=== PATIENT | female | born 1985 | race Two or more races ===

== ENCOUNTER 2021-02-10 10:13 | Emergency (ER) | payer OTHER, SELFPAY ==
--- NOTE | ~2021-02-10 | CT_ITS ---
EXAMINATION: CT ABDOMEN AND PELVIS WITHOUT CONTRAST CLINICAL INFORMATION: Nonreducible abdominal wall hernia. COMPARISON: None TECHNIQUE: Multidetector volumetric imaging was performed from the superior aspect of the liver through the pubic symphysis. Sagittal and coronal reformatted images were obtained on the technologist's workstation. This CT examination was performed using dose optimization techniques as appropriate, variously including the following: *Automated exposure control *Adjustment of mA and/or kV according to patient size (this includes techniques or standardized protocols for targeted exams where dose is matched to indication/reason for exam; i.e. extremities or head) *Use of iterative reconstruction technique DLP: 390 mGy-cm FINDINGS: LUNG BASES: There is bibasilar minimal atelectatic changes. The heart size is normal. LIVER, GALLBLADDER, AND BILIARY TREE: The liver is normal in size, shape, and attenuation. No focal hepatic lesion or biliary ductal dilatation is present. The gallbladder is unremarkable with no evidence of radiopaque gallstones, gallbladder wall thickening, or obvious pericholecystic inflammatory changes. PANCREAS: Unremarkable. SPLEEN: Unremarkable. ADRENAL GLANDS: Unremarkable. KIDNEYS AND URETERS: The kidneys are normal in size, shape, and attenuation. No hydronephrosis, hydroureter, or calculi seen. No perinephric stranding. BLADDER: Unremarkable. GASTROINTESTINAL TRACT: There is scattered stool and gas seen throughout the colon without any significant distention. The small bowel loops are normal caliber. Appendix is not visualized. The stomach is nondistended. ABDOMINAL WALL: There is a small midline epigastric hernia containing fat. The neck is 5 mm wide on axial view 31/3. LYMPH NODES: There are small bilateral inguinal lymph nodes. No abnormal-sized mesenteric and retroperitoneal lymph node seen. VASCULAR: Unremarkable. PELVIC VISCERA: Unremarkable. OSSEOUS STRUCTURES: No lytic or sclerotic pain. CT/CT abdomen pelvis wo con IMPRESSION: Small epigastric midline abdominal wall hernia containing fat with neck 5 mm wide on axial view. Rest of the CT abdomen pelvis is unremarkable.
[2021-02-10 10:40] VITALS: BP 128/83; PULSE 98; RESP 18; TEMP 36.3; O2SAT 99; BMI 25.5
[2021-02-10 11:47] LABS: Amphetamine Screen Urine Not Detected (Not Detect); Barbiturates, Urine Not Detected (Not Detect); Benzodiazepines Screen Urine Not Detected (Not Detect); Cannabinoid Screen Urine Not Detected (Not Detect); Cocaine Screen Urine Not Detected (Not Detect); Fentanyl, urine Not Detected (Not Detect); Opiate Screen Urine Not Detected (Not Detect); Phencyclidine Screen Urine Not Detected (Not Detect)
--- NOTE | 2021-02-10 11:52 | ED_ITS ---
HPI - General Adult General Chief complaint: General Medical Stated complaint: medication Time Seen by Provider: 02/10/21 10:54 Source: patient Mode of arrival: ambulatory History of Present Illness HPI narrative: 35-year-old female with a past medical history hernia, opiate abuse, currently on methadone, recently released from incarceration in [place] sent to this area for [facility] presenting to the ED for methadone dose/re-initiation. States was released from incarceration, arrived in this area yesterday and has been without Methadone x2 days. Admits to withdrawal sx, denies using any illicit drugs or EtOH. Also reports painful non reducible abdominal hernia x months, was being evaluated in [facility] for sx. Reports increasi ng pain. Denies fever, chills, nausea/vomiting, diarrhea/constipation. Onset (ago): day(s) Radiation: non-radiation Pain Consistency: constant Related Data Allergies Allergy/AdvReac Type Severity Reaction Status Date / Time No Known Allergies Allergy Verified 02/10/21 10:44 Review of Systems Review of Systems: Constitutional: No Fever, No Chills, No Fatigue, No Malaise ENT/Mouth: No Ear Pain, No Nasal Congestion, No sore throat, No Rhinorrhea Eyes: No Eye Pain, No Swelling, No Discharge Cardiovascular: No Chest Pain, No SOB, No Palpitations Respiratory: No Cough, No Dyspnea Gastrointestinal: No Nausea, No Vomiting, No Diarrhea, No Constipation, + Abdominal pain Genitourinary: No Dysuria, No Hematuria, No Flank Pain, No Urinary Flow Changes Musculoskeletal: No joint pain, No Myalgias, No Joint Swelling Skin: No Skin Lesions, No rash Neuro: No Weakness, No Dizziness, No Headache Yes all other systems are reviewed and are negative [facility] [place] Past Medical History Attestation statement: The following information was validated with the patient. Medical History Hernia Opiate abuse, episodic Social History Social History Alcohol intake: former Patient Tobacco Use Status: Refuse Tobacco use screen Smoked in Last 30 Days: No Use of substances other than those prescribed or required for medical reasons: Yes Substance Use Type: Heroin Substance Use Frequency: Daily Substance Use Frequency Other:: Heroin use prior to incarceration Last Used Substance: Weeks (ago) Advance Directives: No Advance Directives Information Provided: No Physical Exam Vital Signs: Vital Signs: Last Vital Signs Temp 98.3 F 02/10/21 15:17 Pulse 87 02/10/21 15:17 Resp 18 02/10/21 15:17 BP 119/63 02/10/21 15:17 Pulse Ox 100 02/10/21 15:17 BMI result Body Mass Index 25.5 Const: General: cooperative, healthy appearing and no acute distress Orientation/consciousness: patient oriented x3 Limitations: no limitations HENMT: Head: Yes normal to inspection Ears: hearing grossly normal bilaterally General nose exam: Normal external nose present Face and sinus: Yes normal facial exam Eyes: General: appearance normal, both eyes and all related structures EOM: EOMs intact bilaterally Neck: Neck: Yes normal visual inspection and Yes no meningeal signs Resp: Effort & Inspection: normal respiratory effort and no respiratory distress Auscultation: clear to auscultation bilaterally Cardio: Rate: regular rate Heart sounds: S1 normal heart sound present and S2 normal heart sound present GI: Inspection: Yes normal to inspection Palpation (GI): Soft to palpation, Tenderness to palpation present (GI) periumbilically, no guarding, not rigid and Hernia present ventral (Non-reducible, tender to palpation) Skin: Rashes: no rashes Wounds: no wounds Neuro: General: patient oriented x3, gait normal, tone normal, moves all extremities and no meningeal signs Gait exam (Neuro): Normal gait present Extrem: General: Yes normal to inspection Course Course Course Narrative: -debt recovery officer spoke to [facility] medical division to verify patient's methadone, Na stated patient did not ever receive Methadone with them, he also spoke to patient's prison officer and she has no paperwork stating patient is on Methadone or received dose -mild leukopenia 4.3, labs otherwise unremarkable/reassuring. Lactic acid negative -tox screen negative Unable to obtain IV access on patient after multiple. Will obtain dry CT 1624-- CT abdomen pelvis wo con IMPRESSION: Small epigastric midline abdominal wall hernia containing fat with neck 5 mm wide on axial view. ? Rest of the CT abdomen pelvis is unremarkable. >> results discussed with patient. Patient tolerating p.o. in the ED without abdominal pain, nausea or vomiting. Discussed she needs to follow up outpatient with General surgery, discussed worrisome signs and symptoms and strict return precautions, she verbalized understanding and feels safe for discharge home with this time Medical Decision Making MDM Narrative Medical decision making narrative: 35-year-old female with a past medical history hernia, opiate abuse, currently on methadone, recently released from incarceration in [place] sent to this area for [facility] presenting to the ED for methadone dose/re-initiation. States was released from incarceration, arrived in this area yesterday and has been without Methadone x2 days. On exam vital signs stable, and the ED, nontoxic-appearing, physical exam as above with non reducible ventral hernia. Concern for incarcerated hernia vs strangulated hernia. Low concern for SBO. Will try to verify patient's methadone Plan: Labs, UA, CT AP, [facility] Medical Records Medical records reviewed: Yes I reviewed the patient's medical records. Lab Data Lab results reviewed: Yes I reviewed the patient's lab results. Result diagrams: 02/10/21 13:20 02/10/21 13:20 Labs: Lab Results 02/10/21 02/10/21 02/10/21 Range/Units 11:26 13:20 13:20 WBC 4.3 L (4.8-10.8) X10*3/uL RBC 4.33 (4.20-5.50) X10*6/uL Hgb 12.2 (12.0-16.0) g/dl Hct 35.9 L (37.0-47.0) % MCV 82.9 (80.0-98.0) fL MCH 28.2 (27.0-33.0) pg MCHC 34.0 (31.0-35.0) g/dl RDW 15.9 (11.0-16.0) % Plt Count 222 (160-400) X10*3/uL MPV 11.2 (9.4-12.3) fL Immature Gran % (Auto) 0.2 (0.0-0.4) % Neut % (Auto) 50.0 (45-73) % Lymph % (Auto) 36.1 (20-40) % [place] % (Auto) 10.0 (2-11) % Eos % (Auto) 3.5 (0-4) % Baso % (Auto) 0.2 (0-2) % Lymph # (Auto) 1.6 (1.2-4.9) X10*3/uL [place] # (Auto) 0.4 (0.1-1.2) X10*3/uL Eos # (Auto) 0.2 (0.0-0.4) X10*3/uL Baso # (Auto) 0.0 (0.0-0.2) X10*3/uL Abs Immat Gran (auto) 0.01 (0.00-0.03) X10*3/uL Absolute Neuts (auto) 2.1 (2.0-8.3) x10*3/uL Absolute Nucleated RBC 0.000 (0.0-0.012) X10*3/uL Nucleated RBC % (auto) 0.0 (0.0-0.2) /100WBC Sodium 140 (135-145) mmol/L Potassium 4.3 (3.3-5.1) mmol/L Chloride 107 (96-108) mmol/L Carbon Dioxide 26 (22-29) mmol/L Anion Gap 11 L (12-20) BUN 7 L (9-16) mg/dL Creatinine 0.78 (0.5-1.4) mg/dL Estim Creat Clear Calc 81.9 Estimated GFR > 60 Random Glucose 100 (60-115) mg/dL Lactic Acid (0.5-2.0) mmol/L Calcium 9.3 (8.4-10.2) mg/dL Magnesium 1.7 (1.6-2.6) mg/dL Total Bilirubin 0.2 (0.0-1.0) mg/dL Direct Bilirubin < 0.2 (0.0-0.5) mg/dL AST 30 (5-31) U/L ALT 39 H (0-31) U/L Alkaline Phosphatase 67 (39-117) U/L Total Protein 7.6 (6.5-8.0) g/dL Albumin 3.8 (3.5-5.0) g/dL Lipase 62 (8-78) U/L Beta HCG, Quant < 2 mIU/mL Urine Opiates Screen Not Detected (Not Detect) Urine Fentanyl Screen Not Detected (Not Detect) Ur Barbiturates Screen Not Detected (Not Detect) Ur Phencyclidine Scrn Not Detected (Not Detect) Ur Amphetamines Screen Not Detected (Not Detect) U Benzodiazepines Scrn Not Detected (Not Detect) Urine Cocaine Screen Not Detected (Not Detect) U Marijuana (THC) Screen Not Detected (Not Detect) 02/10/21 Range/Units 13:20 WBC (4.8-10.8) X10*3/uL RBC (4.20-5.50) X10*6/uL Hgb (12.0-16.0) g/dl Hct (37.0-47.0) % MCV (80.0-98.0) fL MCH (27.0-33.0) pg MCHC (31.0-35.0) g/dl RDW (11.0-16.0) % Plt Count (160-400) X10*3/uL MPV (9.4-12.3) fL Immature Gran % (Auto) (0.0-0.4) % Neut % (Auto) (45-73) % Lymph % (Auto) (20-40) % [place] % (Auto) (2-11) % Eos % (Auto) (0-4) % Baso % (Auto) (0-2) % Lymph # (Auto) (1.2-4.9) X10*3/uL [place] # (Auto) (0.1-1.2) X10*3/uL Eos # (Auto) (0.0-0.4) X10*3/uL Baso # (Auto) (0.0-0.2) X10*3/uL Abs Immat Gran (auto) (0.00-0.03) X10*3/uL Absolute Neuts (auto) (2.0-8.3) x10*3/uL Absolute Nucleated RBC (0.0-0.012) X10*3/uL Nucleated RBC % (auto) (0.0-0.2) /100WBC Sodium (135-145) mmol/L Potassium (3.3-5.1) mmol/L Chloride (96-108) mmol/L Carbon Dioxide (22-29) mmol/L Anion Gap (12-20) BUN (9-16) mg/dL Creatinine (0.5-1.4) mg/dL Estim Creat Clear Calc Estimated GFR Random Glucose (60-115) mg/dL Lactic Acid 0.9 (0.5-2.0) mmol/L Calcium (8.4-10.2) mg/dL Magnesium (1.6-2.6) mg/dL Total Bilirubin (0.0-1.0) mg/dL Direct Bilirubin (0.0-0.5) mg/dL AST (5-31) U/L ALT (0-31) U/L Alkaline Phosphatase (39-117) U/L Total Protein (6.5-8.0) g/dL Albumin (3.5-5.0) g/dL Lipase (8-78) U/L Beta HCG, Quant mIU/mL Urine Opiates Screen (Not Detect) Urine Fentanyl Screen (Not Detect) Ur Barbiturates Screen (Not Detect) Ur Phencyclidine Scrn (Not Detect) Ur Amphetamines Screen (Not Detect) U Benzodiazepines Scrn (Not Detect) Urine Cocaine Screen (Not Detect) U Marijuana (THC) Screen (Not Detect) Discharge Plan Discharge Clinical Impression: Abdominal wall hernia Patient Disposition: Home, Self-Care Instructions: Ventral Hernia (ED) Additional Instructions: Your blood work is reassuring. CT scan showed was an epigastric line wall hernia containing fat You need to follow-up with General surgery Avoid straining, increased abdominal pressure, or heavy lifting If you develops severe abdominal pain, persistent nausea/vomiting, or fever return to the ED immediately Please do not use drugs or alcohol Referrals: Miguel Crowe MD [Physician] - 3 days
--- NOTE | 2021-02-10 13:21 | MHC.RECOVSUP ---
? Reason for consult:Recovery support o Current location: 4 mar lin o Identified substance use concern: heroin - Withdrawal - Support ? Intervention: o MAT started or to be started o Harm reduction discussion ? Plan: o Patient to follow up with [facility] after discharge ? Additional information:Spoke with [facility]. They did not give her Methadone. Spoke with Clinician Iris Kaplan [phone]. She states she did not receive a dose. Spoke with Margoth Grimm Central Office Inspector, she has no paperwork stating she received a dose. notified Ketty
[2021-02-10 13:27] LABS: MANUAL DIFF FLAG NO
[2021-02-10 13:37] LABS: Basophils Percent Auto 0.2 % (0-2); Eosinophils Absolute Auto 0.2 X10*3/uL (0.0-0.4); Eosinophils Percent Auto 3.5 % (0-4); Hematocrit 35.9 % (37.0-47.0); Hemoglobin 12.2 g/dl (12.0-16.0); Imm Gran Abs Auto 0.01 X10*3/uL (0.00-0.03); Imm Gran Pct Auto 0.2 % (0.0-0.4); Lymphocytes Absolute Auto 1.6 X10*3/uL (1.2-4.9); Lymphocytes Percent Auto 36.1 % (20-40); Mean Corpuscular Hemoglobin 28.2 pg (27.0-33.0); Mean Corpuscular Volume 82.9 fL (80.0-98.0); Mean Platelet Volume 11.2 fL (9.4-12.3); Monocytes Absolute Auto 0.4 X10*3/uL (0.1-1.2); Neutrophils Absolute Auto 2.1 x10*3/uL (2.0-8.3); Platelet Count 222 X10*3/uL (160-400); Red Blood Count 4.33 X10*6/uL (4.20-5.50); Red Cell Distribution Width 15.9 % (11.0-16.0); White Blood Count 4.3 X10*3/uL (4.8-10.8)
[2021-02-10 13:47] LABS: Lactic Acid 0.9 mmol/L (0.5-2.0)
[2021-02-10 13:50] LABS: Alanine Aminotransferase 39 U/L (0-31); Albumin Level 3.8 g/dL (3.5-5.0); Alkaline Phosphatase 67 U/L (39-117); Anion Gap 11 (12-20); Aspartate Amino Transferase 30 U/L (5-31); Bilirubin Direct < 0.2 mg/dL (0.0-0.5); Bilirubin Total 0.2 mg/dL (0.0-1.0); Blood Urea Nitrogen 7 mg/dL (9-16); Calcium 9.3 mg/dL (8.4-10.2); Carbon Dioxide 26 mmol/L (22-29); Chloride 107 mmol/L (96-108); Creatinine Clr Calc Pharmacy 81.9; Estimated Glomerular Filt Rate > 60; Glucose Random 100 mg/dL (60-115); Lipase 62 U/L (8-78); Magnesium 1.7 mg/dL (1.6-2.6); Potassium 4.3 mmol/L (3.3-5.1); Sodium 140 mmol/L (135-145); Total Protein 7.6 g/dL (6.5-8.0)
[2021-02-10 13:57] LABS: HCG Quantitative < 2 mIU/mL
--- NOTE | 2021-02-10 15:04 | PC.NURSE ---
patient a&ox3, pt awaiting results of ct scan, pt was unable to get iv site inserted by this nurse, a nurse attempting us as well as a provider. ivf/meds being held.
[2021-02-10 15:17] VITALS: BP 119/63; PULSE 87; RESP 18; TEMP 36.8; O2SAT 100
--- NOTE | 2021-02-10 15:18 | PC.NURSE ---
Pt sitting on strecther, awating CT scan results. No complaints
== END 2021-02-10 16:40 | disposition home or self-care (01) ==
PROVIDERS: Physician Assistant; Emergency Provider Emergency Medicine
DX: K43.9 Ventral hernia without obstruction or gangrene (principal); R10.9 Unspecified abdominal pain; B20 Human immunodeficiency virus [HIV] disease; F11.10 Opioid abuse, uncomplicated
CPT/HCPCS: 36415; 74176; 80048; 80076; 80307; 83605; 83690; 83735; 84702; 85025; 96361; 96374; 99284

== ENCOUNTER → 2021-02-24 13:47 | Outpatient (BNVA) | payer MEDICAID, SELFPAY | PROVIDERS: Visit Provider Surgery | DX: K43.9 Ventral hernia without obstruction or gangrene (principal) | CPT/HCPCS: 99202 ==